=== PATIENT | male | born 1965 | race Hispanic/Latino ===

== ENCOUNTER 2018-09-26 11:44 | Day surgery (SDC) | payer BC ==
[~2018-09-26 11:44] MED LIST: ANCEF/STERILE WATER 2 GM/20 ML IV NR
[2018-09-26] MEDS ORDERED: LACTATED RINGERS 1,000 ML ONE (12:22)
[2018-09-26] MEDS ORDERED: LACTATED RINGERS 1,000 ML IV SCH (12:38)
[2018-09-26] MEDS ORDERED: VERSED IV NR (13:46)
[2018-09-26] MEDS ORDERED: DILAUDID IV PRN (14:05)
--- NOTE | 2018-09-26 14:10 | Anesthesia Day of Surgery ---
Anesthesia Day of Surgery - Day of Surgery Patient Examined: Yes Patient H&P Reviewed: Yes Patient is NPO: Yes
--- NOTE | 2018-09-26 14:10 | Anesthesia Consultation ---
Anesthesia Consult and Med Hx Date of service: 09/26/18 - Airway Anesthetic Teeth Evaluation: Good ROM Head & Neck: Adequate Mental/Hyoid Distance: Adequate Mallampati Class: Class II Intubation Access Assessment: Possibly Difficult - Pulmonary Exam CTA: Yes - Cardiac Exam Cardiac Exam: RRR - Pre-Operative Health Status ASA Pre-Surgery Classification: ASA2 Proposed Anesthetic Plan: General - Pulmonary Hx Smoking: Yes (quit 10yrs ago) Hx Asthma: No Hx Respiratory Symptoms: No COPD: No Hx Sleep Apnea: No (HARISH PRE SCREEN LOW RISK.) - Cardiovascular System Hx Hypertension: No Hx Heart Attack/AMI: No Hx Percutaneous Transluminal Coronary Angioplasty (PTCA): No - Central Nervous System Hx Seizures: No CVA: No - Gastrointestinal Hx Gastroesophageal Reflux Disease: No - Endocrine Hx Renal Disease: No Hx Liver Disease: No Hx Insulin Dependent Diabetes: No Hx Non-Insulin Dependent Diabetes: No Hx Thyroid Disease: No - Other Systems Hx Obesity: Yes - Additional Comments Anesthesia Medical History Comments: No hx anesthetic complications.
[2018-09-26] MEDS ORDERED: XYLOCAINE MPF 2% ONE (14:39)
[2018-09-26] MEDS ORDERED: SUBLIMAZE ONE (14:39)
[2018-09-26] MEDS ORDERED: DIPRIVAN 10 MG/ML IV ONE (14:40)
[2018-09-26] MEDS ORDERED: NACL 0.9% IR ONE (15:13)
--- NOTE | 2018-09-26 15:41 | Short Stay Summary ---
Short Stay Documentation Date of service: 09/26/18 Narrative H&P: 53 yr old male with bilat hydrocele------rt greater than left makayla noted - History Past Medical History: No medical history Past Surgical History: No surgical history Social history: single - Allergies and Medications Current Medications: Allergies No Known Allergies Allergy (Verified 08/29/18 16:09) Home Medications Medication Instructions Recorded Confirmed Last Taken Type No Known Home Medications [No 08/29/18 09/25/18 Unknown History Reported Home Medications] Active Medications Cefazolin Sodium (Ancef/Sterile Water 2 Gm/20 Ml) 2 gm IV PREOP NR Stop: 09/26/18 23:59 Hydromorphone HCl (Dilaudid) 0.5 mg IV Q10MIN PRN PRN Reason: Pain , Severe (7-10) Stop: 09/26/18 23:06 Lactated Ringer's (Lactated Ringers) 1,000 mls @ 100 mls/hr IV DIRECT GAL Stop: 09/26/18 23:59 Last Admin: 09/26/18 12:40 Dose: 100 mls/hr Documented by: Midazolam HCl (Versed) 2 mg IV PREOP NR Stop: 09/26/18 23:59 Last Admin: 09/26/18 13:52 Dose: 2 mg Documented by: - Physical exam General appearance: no acute distress, well-nourished Integumentary: no rash, no growths HEENT: PERRLA Lungs: Clear to auscultation, Normal air movement Heart: Regular rate, No murmurs Gastrointestinal: normal Rectal Exam: deferred - Brief post op/procedure progress note Date of procedure: 09/26/18 Pre-op diagnosis: bilat hydrocele Post-op diagnosis: same Procedure: rt hydrocele with scrotaplasty ( mindi drain) Anesthesia: GETA Surgeon: JANETTE ELAINE Estimated blood loss: minimal Pathology: list (sac & skin) Specimen disposition: to lab Condition: stable - Hospital course Hospital course: ultram & norco on chart - Disposition Condition at discharge: Stable Disposition: DC-01 TO HOME OR SELFCARE Short Stay Discharge Plan Follow up with: DEVIN BARNETT JR, MD [Primary Care Provider] - 7 Days
[2018-09-26] MEDS ORDERED: TORADOL ONE (15:44)
[2018-09-26] MEDS ORDERED: DILAUDID ONE (15:45)
[2018-09-26] MEDS ORDERED: NORCO 5/325 PO PRN (15:51)
[2018-09-26 16:26] VITALS: BP 134/86
--- NOTE | 2018-09-26 18:49 | Operative Report ---
PREOPERATIVE DIAGNOSIS: Bilateral hydrocele. POSTOPERATIVE DIAGNOSIS: Bilateral hydrocele right greater than left. PROCEDURE: Right hydrocelectomy with a scrotoplasty. SURGEON: Germain Ashley MD ANESTHESIA: General. ESTIMATED BLOOD LOSS: Minimal. FLUIDS: Crystalloid. COMPLICATIONS: No complications. INDICATIONS: This 53-year-old gentleman actually seen by Dr. Plaza in our group last year[place] and presents now for reevaluation of his scrotal mass. Ultrasound revealed bilateral hydroceles, but on exam, right greater than left. Discussed options. He agreed to proceed with surgical intervention. DESCRIPTION OF PROCEDURE: The patient was taken to the operative suite, placed in a supine position. After adequate general anesthesia, placed in a supine position, prepped and draped in a sterile fashion. Scrotal skin was marked with a pen. Redundant scrotal skin was excised and sent for routine pathologic evaluation. The hydrocele sac also was excised. Serosanguineous fluid was removed. Normal testicle. Whipstitch was used to place on the remnant hydrocele sac. Whipstitch using 2-0 chromic in a running fashion was used to provide hemostasis to the hydrocele remnant tunica vaginalis. The examination of the left testicle appeared normal and actually a small hydrocele that was left intact. A half-inch [place] drain was brought out through a separate incision and tied and secured with a 2-0 chromic in an interrupted fashion. The tunica vaginalis was closed with 2-0 Vicryl and 2-0 chromic in a running fashion. Skin was closed with 3-0 chromic in interrupted fashion. The patient tolerated the procedure well as fluffs and mesh briefs were placed. The patient tolerated the procedure well and was taken to the recovery room. He will go home on [employer] and follow up in the office. JOB# [id number] [facility]
== END 2018-09-26 17:15 | disposition home or self-care (01) ==
LOC: OR 11:44
PROVIDERS: ATTEND Urology
DX: N43.3 Hydrocele, unspecified (principal); M19.90 Unspecified osteoarthritis, unspecified site; E66.9 Obesity, unspecified; Z68.34 Body mass index [BMI] 34.0-34.9, adult; Z87.891 Personal history of nicotine dependence; Z98.890 Other specified postprocedural states
CPT/HCPCS: 55040; 88302; 88305; J0690; J1170; J1885; J2250; J2704; J3010; J7120